=== PATIENT | male | born 1980 | race Caucasian/White ===

== ENCOUNTER 2016-09-24 12:05 | Emergency (ER) | payer BC ==
[~2016-09-24] VITALS: Ht 190.5 cm; Wt 96.6 kg
[2016-09-24] MEDS ORDERED: Ketorolac 30mg Inj IM ONE (13:00)
[2016-09-24 13:09] VITALS: BP 137/84
[2016-09-24] MEDS ORDERED: CYCLOBENZAPRINE10 MG ORAL (13:33)
[2016-09-24] MEDS ORDERED: IBUPROFEN600 MG ORAL (13:33)
[2016-09-24 13:43] VITALS: BP 137/84
--- NOTE | 2016-09-24 14:03 | Diagnostic Imaging Report ---
Indication: PAIN Technique: 3 views of the left shoulder Comparison: None Findings: No acute fractures or dislocations. Joint spaces are preserved. Impression: Negative
--- NOTE | 2016-09-26 15:40 | Emergency Room Report ---
History of Present Illness General Chief Complaint: Pain Source: Patient (CHAGO MEZA) Present Illness HPI The patient is a 36 year old male presenting for L shoulder pain which began one week prior for no known reason. The patient denies any injury to the shoulder. Pt states pain is worse with relaxing the shoulder and letting it hang down. Pain relieved when arm is raised. No radiating pain. Described as an 8/10 sharp sensation. Pt denies numbness, tingling, F, chills, rash, or any other symptoms. (CHAGO MEZA) Allergies: Coded Allergies: No Known Allergies (Unverified , 09/24/16) Patient History Past Medical History: see triage record Pertinent Family History: none Reviewed Nursing Documentation: PMH: Agreed, PSxH: Agreed (CHAGO MEZA) Nursing Documentation-PMH Past Medical History: No Stated History (CHAGO MEZA) Review of Systems All Other Systems: negative except mentioned in HPI (CHAGO MEZA) Physical Exam Vital Signs Date Time Temp Pulse Resp B/P Pulse Ox O2 Delivery O2 Flow Rate FiO2 09/24/16 12:29 97.7 87 14 137/84 99 Room Air Sp02 EP Interpretation: reviewed, normal General Appearance: no apparent distress, alert, GCS 15, non-toxic Head: normocephalic, atraumatic Eyes: bilateral eye PERRL, bilateral eye normal inspection Musculoskeletal: back normal, normal range of motion, non-tender Neurologic: alert, oriented x3, responsive, motor strength/tone normal, DTRs symmetric, sensory intact, normal gait, speech normal Reflexes: 3+ bicep (R), 3+ bicep (L), 3+ tricep (R), 3+ tricep (L), 3+ knee (R) , 3+ knee (L) Skin: normal color, no rash, warm/dry, well hydrated Lymphatic: no adenopathy (CHAGO MEZA) Procedures Splinting Splinting : Consent: Verbal Location: L shoulder Splint: sling Pre-Proc Neuro Vasc Exam: normal Post-Proc Neuro Vasc Exam: normal Patient Tolerated: Well Complications: None (CHAGO MEZA) Medical Decision Making PA Attestation Dr. Navarro is my supervising physician. Patient management was discussed with my supervising physician (CHAGO MEZA) Diagnostic Impression: Primary Impression: Strain of shoulder, left ER Course The patient is a 36 year old male presenting for L shoulder pain which began one week prior DDx: RTC injury, strain/sprain, fracture, impingement, neuropathy PE: vitals WNL. NAD L shoulder: no deformity. Non tender. No atrophy. Full AROM. SILT. Patient in obvious discomfort when he allows the shoulder to fall at this side. Xray unremarkable. Pt given toradol for pain L arm placed in sling. Pt to be DC'ed home with prescriptions for motrin and flexeril. Patient advised he needs to FU with PMD and may need MRI and other studies if symptoms continue (CHAGO MEZA) ER Course Scribe documentation reviewed by me and is accurate (Trevor Navarro M.D.) Other X-Ray Diagnostic Results Other X-Ray Diagnostic Results : X-Ray Ordered: L shoulder Date: Sep 24, 2016 EP Interpretation: Yes Findings: no fractures, no dislocation, no soft tissue swelling Number of Views: 3 PA Scribe Text I'm acting as scribe for my supervising physician. My supervising physician's interpretation of the L shoulder xrays are there are no fractures, dislocations or soft tissue swelling. (CHAGO MEZA) Last Vital Signs Date Time Temp Pulse Resp B/P Pulse Ox O2 Delivery O2 Flow Rate FiO2 09/24/16 13:43 97.7 67 14 137/84 99 Room Air Status: improved (CHAGO MEZA PGlenisAGlenis) Disposition: HOME, SELF-CARE Condition: Improved Scripts Cyclobenzaprine Hcl* (FLEXERIL*) 10 Mg Tablet 10 MG ORAL THREE TIMES A DAY, #15 TAB Prov: CHAGO MEZA P.A. 09/24/16 Ibuprofen* (MOTRIN*) 600 Mg Tablet 600 MG ORAL Q8H Y for For Pain, #30 TAB 0 Refills Prov: CHAGO MEZA P.A. 09/24/16 Patient Instructions: Shoulder Sprain Additional Instructions: I discussed my findings with the patient. All questions and concerns have been answered. Treatment and medication compliance have been addressed. I advised the patient that they need to follow up with PMD in 3-5 days. Return to ED if pain remains or worsens, numbness or tingling occurs, new rash is noticed, fever is noticed, or if needed for any reason. Patient verbalized understanding of discharge instructions. The patient is advised he may need an MRI if symptoms continue CHAGO MEZA Sep 26, 2016 15:40 Trevor Navarro M.D. Sep 27, 2016 21:58
== END 2016-09-24 13:47 | disposition home or self-care (01) ==
LOC: EMR 12:53
DX: S46.912A Strain of unspecified muscle, fascia and tendon at shoulder and upper arm level, left arm, initial encounter (principal); X58.XXXA Exposure to other specified factors, initial encounter; Y92.9 Unspecified place or not applicable
CPT/HCPCS: 73030; 96372; 99283; J1885

== ENCOUNTER 2016-10-02 15:01 | Emergency (ER) | payer BC ==
[~2016-10-02] VITALS: Ht 190.5 cm; Wt 95.3 kg
[~2016-10-02 15:01] MED LIST: CYCLOBENZAPRINE10 MG ORAL; IBUPROFEN600 MG ORAL
[2016-10-02] MEDS ORDERED: LORAZEPAM0.5 MG ORAL (15:43)
[2016-10-02] MEDS ORDERED: Ketorolac 30mg Inj IM ONE (16:00)
[2016-10-02] MEDS ORDERED: Norco 5mg/325mg tab ORAL ONE (16:00)
[2016-10-02] MEDS ORDERED: NORCO 5-325 TA1 EAC1 ORAL (16:40)
[2016-10-02 16:45] VITALS: BP 129/87
--- NOTE | 2016-10-02 22:25 | Emergency Room Report ---
History of Present Illness General Chief Complaint: Upper Extremity Injury Source: Patient Present Illness HPI The patient is a 36 old male presenting for left shoulder pain. The patient was seen in this emergency department one week prior for same complaint. X-ray was negative at that time patient was given prescription for Motrin and Flexeril which the patient states did not help. The patient was told to follow up with primary care physician and obtain an MRI which he has not been able to do yet. Pain is described as a 5/10 dull ache localized to the left shoulder and is worse when the arm hangs at the side. he denies any injury to the shoulder and is unsure of why the pain started. The patient denies numbness or tingling. Allergies: Coded Allergies: No Known Allergies (Unverified , 09/24/16) Patient History Past Medical History: see triage record Pertinent Family History: none Reviewed Nursing Documentation: PMH: Agreed, PSxH: Agreed Nursing Documentation-PMH Past Medical History: No Stated History Review of Systems All Other Systems: negative except mentioned in HPI Physical Exam Vital Signs Date Time Temp Pulse Resp B/P Pulse Ox O2 Delivery O2 Flow Rate FiO2 10/02/16 15:38 98.2 80 16 129/87 100 Room Air Sp02 EP Interpretation: reviewed, normal General Appearance: no apparent distress, alert, GCS 15, non-toxic Head: normocephalic, atraumatic Eyes: bilateral eye PERRL, bilateral eye normal inspection Musculoskeletal: normal inspection, normal range of motion, non-tender Neurologic: alert, oriented x3, responsive, motor strength/tone normal, sensory intact, speech normal Psychiatric: judgement/insight normal, memory normal, mood/affect normal, no suicidal/homicidal ideation Skin: normal color, no rash, warm/dry, well hydrated Lymphatic: no adenopathy Medical Decision Making PA Attestation Dr. Rowan is my supervising physician. Patient management was discussed with my supervising physician Diagnostic Impression: Primary Impression: Strain of shoulder, left ER Course The patient is a 36 old male presenting for left shoulder pain Ddx considered include but not limited to rotator cuff injury, fracture, contusion, Neuropathy Physical exam: No apparent distress. Left shoulder: Patient is in a sling. Full active range of motion. Sensation intact to light touch. No obvious deformity. Nontender to palpation Patient is given Toradol and Amber for pain with good relief. The patient is advised that he needs to obtain an MRI for further workup. Pain management will be increased and patient is given prescription for Amber. ER precautions are given Last Vital Signs Date Time Temp Pulse Resp B/P Pulse Ox O2 Delivery O2 Flow Rate FiO2 10/02/16 16:45 98.2 16 129/87 100 Room Air 10/02/16 16:45 87 Status: improved Disposition: HOME, SELF-CARE Condition: Improved Scripts Hydrocodone Bit/Acetaminophen 5-325* (NORCO 5-325 TABLET*) 1 Each Tablet 1 TAB ORAL Q4H Y for For Pain, #15 TAB Prov: CHAGO MEZA 10/02/16 Referrals: DENNIS JAMESON (PCP) Patient Instructions: Shoulder Pain Additional Instructions: I discussed my findings with the patient. All questions and concerns have been answered. Treatment and medication compliance have been addressed. I advised the patient that they need to follow up with PMD in 3-5 days. Return to ED if pain remains or worsens, numbness or tingling occurs, new rash is noticed, fever is noticed, or if needed for any reason. Patient verbalized understanding of discharge instructions. The patient is advised he needs to return to see primary care physician for MRI CHAGO MEZA Oct 02, 2016 22:25
== END 2016-10-02 16:45 | disposition home or self-care (01) ==
LOC: EMR 15:51
DX: S46.912D Strain of unspecified muscle, fascia and tendon at shoulder and upper arm level, left arm, subsequent encounter (principal); X58.XXXD Exposure to other specified factors, subsequent encounter
CPT/HCPCS: 96372; 99283; J1885